=== PATIENT | male | born 1965 | race Caucasian/White ===

== ENCOUNTER 2018-06-28 16:35 | Emergency (ER) | payer SELFPAY ==
[~2018-06-28] VITALS: Ht 172.7 cm; Wt 79.4 kg
[2018-06-28 16:38] VITALS: BP 169/109
--- NOTE | 2018-06-28 16:41 | NUR ---
PT SENT TO LOBBY TO WAIT FOR AVAILABLE BED.
--- NOTE | 2018-06-28 16:56 | NUR ---
PT AMUBLATED TO ER BED 04
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
[2018-06-28] MEDS ORDERED: BACITRACIN OINT 500 UNITS/GM PKT TP ONE (17:10)
[2018-06-28] MEDS ORDERED: IBUPROFEN 600 MG TAB PO ONE (17:10)
--- NOTE | 2018-06-28 17:20 | NUR ---
PT BEING TAKEN TO RAD
--- NOTE | 2018-06-28 17:56 | NUR ---
KNEE IMMOBILIZER APPLIED AT THIS TIME
--- NOTE | 2018-06-28 17:59 | NUR ---
KNEE IMMOBILIZER APPLIED TO LT SIDE BY MELISSA SZYMANSKI. PT VERBALIZES UNDERSTANDING OF CARE AND USE. PALPABLE PEDAL PULSE.
--- NOTE | 2018-06-28 18:07 | NUR ---
Patient discharged with v/s stable. Written and verbal after care instructions given and explained. Patient alert, oriented and verbalized understanding of instructions. Ambulatory with steady gait. All questions addressed prior to discharge. ID band removed. Patient advised to follow up with PMD. Rx of IBUPROFEN given. Patient educated on indication of medication including possible reaction and side effects. Opportunity to ask questions provided and answered. Addendum: 06/28/18 at 1814 by [email or web address] PRESCRIPTION FLEXERIL AND BACITRACIN
[2018-06-28 18:08] VITALS: BP 154/98
== END 2018-06-28 18:07 | disposition home or self-care (01) ==
LOC: MED 16:35
DX: S86.811A Strain of other muscle(s) and tendon(s) at lower leg level, right leg, initial encounter (principal); S50.01XA Contusion of right elbow, initial encounter; V19.9XXA Pedal cyclist (driver) (passenger) injured in unspecified traffic accident, initial encounter; Y93.55 Activity, bike riding; Y92.89 Other specified places as the place of occurrence of the external cause; Y99.8 Other external cause status
CPT/HCPCS: 29505; 73070; 73560; 73590; 99283

== ENCOUNTER 2018-07-01 14:28 | Emergency (ER) | payer SELFPAY ==
[~2018-07-01] VITALS: Ht 172.7 cm; Wt 77.1 kg
[2018-07-01 14:33] VITALS: BP 140/80
--- NOTE | 2018-07-01 15:37 | NUR ---
Patient ambulated to bed 4. RN evaluating patient at bedside.
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
--- NOTE | 2018-07-01 17:04 | NUR ---
Dr. Henderson evaluating patient at bedside.
[2018-07-01] MEDS ORDERED: KETOROLAC 60 MG/2 ML VIAL IM ONE (17:10)
[2018-07-01 17:45] VITALS: BP 138/88
--- NOTE | 2018-07-01 17:45 | NUR ---
Patient discharged with v/s stable. Written and verbal after care instructions given and explained. Patient alert, oriented and verbalized understanding of instructions. Ambulatory with steady gait. All questions addressed prior to discharge. ID band removed. Patient advised to follow up with PMD. Rx of VOLTAREN XR 100MG given. Patient educated on indication of medication including possible reaction and side effects. Opportunity to ask questions provided and answered.
== END 2018-07-01 17:45 | disposition home or self-care (01) ==
LOC: MED 14:28
DX: M25.562 Pain in left knee (principal); M25.522 Pain in left elbow; V18.4XXA Pedal cycle driver injured in noncollision transport accident in traffic accident, initial encounter; Y93.I9 Activity, other involving external motion; Y92.89 Other specified places as the place of occurrence of the external cause; Y99.8 Other external cause status
CPT/HCPCS: 96372; 99283; J1885